=== PATIENT | male | born 1940 | race Caucasian/White ===

== ENCOUNTER → 2018-02-15 | Outpatient (CLI) | payer MEDICARE, OTHER ==
[~2018-02-15] MED LIST: ACHD5005 PO; ALBU2.5V4 IN; AMIO200T50 PO; ASP81CT; ASPI-74 PO; AZIT-21 PO; CEFD300C PO; CEPH500C PO; CHOL100011 PO; CHOL5000 PO; CLOP75TA PO; GREEN TEA PO; MECL-124 PO; METO50TA7 PO; NSTU5 PO; OMEP-10 PO; PRD10T PO; PRM25T PO; SIMV20TA3 PO; SULF1TAB35 PO
--- NOTE | 2018-02-15 11:06 | Diagnostic Imaging Report ---
PROCEDURE: CT head without contrast. TECHNIQUE: Multiple contiguous axial images were obtained through the brain without the use of intravenous contrast. INDICATION: Trauma. Scalp laceration. Anticoagulation therapy. COMPARISON: None. FINDINGS: There appears scalp contusion/laceration overlying the right parietal convexity near the midline. Moderate to advanced generalized cerebral and cerebellar parenchymal volume loss. No CT evidence of acute infarction. Intracranial vascular calcifications. No intracranial hemorrhage, mass effect, hydrocephalus or extra-axial fluid collections. Osseous structures are intact. The paranasal sinuses and mastoids are clear. IMPRESSION: 1. No acute intracranial CT findings. 2. Scalp laceration/contusion overlying the right parietal convexity near the midline. No fractures. Dictated by: Dictated on workstation # [id number]
== END ==
LOC: RAD 10:18
PROVIDERS: ATTEND Nurse Practitioner Family
DX: S01.01XA Laceration without foreign body of scalp, initial encounter (principal); W19.XXXA Unspecified fall, initial encounter; Z79.01 Long term (current) use of anticoagulants
CPT/HCPCS: 70450

== ENCOUNTER → 2019-08-15 | Outpatient (CLI) | payer MEDICARE, OTHER ==
[2019-08-15 10:13] LABS: CREATININE SERUM 1.05 MG/DL (0.60-1.30); GFR ESTIMATED > 60
== END ==
LOC: LAB 09:19
PROVIDERS: ATTEND Nurse Practitioner
DX: I71.4 Abdominal aortic aneurysm, without rupture (principal)
CPT/HCPCS: 36415; 82565

== ENCOUNTER → 2021-04-08 | Outpatient (CLI) | payer BC, MEDICARE ==
[~2021-04-08] MED LIST changes: +CATHETER FLUSH 10 ML SYR IV PRN; +HOLD METFORMIN - RECEIVED CONTRAST 20 ML VIAL IV SCH; +IOHEXOL 350 MG/ML 100 ML (OMNIPAQUE 350) VIAL IV ONE; +NS 100 ML (IVPB) BAG IV ONE
[2021-04-08 08:21] LABS: BUN/CREATININE RATIO 10; CREATININE SERUM 0.87 MG/DL (0.60-1.30); GFR ESTIMATED > 60
--- NOTE | 2021-04-08 09:19 | Diagnostic Imaging Report ---
PROCEDURE: CT angiography of the abdomen with and without contrast. TECHNIQUE: Multiple contiguous axial images were obtained through the abdomen and pelvis after administration of intravenous contrast. 3D MIP reconstructions were made. Auto Exposure Controls were utilized during the CT exam to meet ALARA standards for radiation dose reduction. INDICATION: Abdominal aortic aneurysm. There are no prior CTA abdomen exams available for comparison. The MRI lumbar spine exam performed on 10/29/2014 noted that the descending thoracic aorta was slightly dilated measuring 2.8 x 2.8 cm (normal 3.0 x 3.0 cm or less). In the interval since the previous MRI lumbar spine exam, the infrarenal aneurysm has increased in size and now measures 3.3 x 4.1 cm in maximum transverse and AP diameters. There is also thrombus occupying 50% of the lumen in the region of the aneurysm. There is fairly extensive atherosclerotic plaque throughout the major branches of the aorta and there do appear to be moderate stenoses involving the origins of the celiac axis and superior mesenteric artery and perhaps left renal artery. There is no acute abnormality of the abdomen identified. The liver is of lower density than usually seen and this does suggest fatty metamorphosis. The spleen does contain a number of calcifications. 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 The pancreas, adrenals, the kidneys and the inferior vena cava are unremarkable for an acute abnormality. The gallbladder is not fully distended and difficult to assess. There is no obvious gallbladder abnormality evident. The stomach is also difficult to evaluate and partially filled with fluid and gas. There is no abdominal mass or free fluid collection evident. There do appear to be a few diverticula in the sigmoid colon but there is no sign of acute diverticulitis. The images through the lung bases show there is cardiomegaly and coronary artery disease as well as slight pleural thickening in the right lung base. There is no evidence for pneumonia or for pleural effusion. The bone windows are unremarkable for fracture or for destructive lesion. IMPRESSION: 1. 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 The aorta measures 3.3 x 4.1 cm. Half of the aneurysm lumen is occupied by thrombus. 2. There is atherosclerotic disease throughout the aorta and do appear to moderate stenoses involving the origins of the superior mesenteric artery, celiac axis and perhaps the left renal artery. 3. There is no acute abnormality of the abdomen noted. 4. There is cardiomegaly and coronary artery disease. Dictated by: Dictated on workstation # [id number]
== END ==
LOC: RAD 07:49
PROVIDERS: ATTEND Internal Medicine Cardiovascular Disease
DX: I71.4 Abdominal aortic aneurysm, without rupture (principal); I25.10 Atherosclerotic heart disease of native coronary artery without angina pectoris; I51.7 Cardiomegaly
CPT/HCPCS: 36415; 74175; 82565; 84520

== ENCOUNTER → 2021-06-25 | Outpatient (CLI) | payer MEDICARE, BC ==
[~2021-06-25] MED LIST changes: -CATHETER FLUSH 10 ML SYR IV PRN; -HOLD METFORMIN - RECEIVED CONTRAST 20 ML VIAL IV SCH; -IOHEXOL 350 MG/ML 100 ML (OMNIPAQUE 350) VIAL IV ONE; -NS 100 ML (IVPB) BAG IV ONE
[2021-06-25 08:46] LABS: ALBUMIN 3.7 GM/DL (3.2-4.5)
[2021-06-25 08:47] LABS: POTASSIUM 4.7 MMOL/L (3.6-5.0)
[2021-06-25 08:48] LABS: CALCIUM 9.9 MG/DL (8.5-10.1)
[2021-06-25 08:52] LABS: CREATININE SERUM 0.94 MG/DL (0.60-1.30); PHOSPHORUS 3.3 MG/DL (2.3-4.7)
[2021-06-25 08:55] LABS: MAGNESIUM 1.7 MG/DL (1.6-2.4)
== END ==
LOC: LAB 08:16
DX: I48.0 Paroxysmal atrial fibrillation (principal)
CPT/HCPCS: 36415; 80069; 80162; 83735

== ENCOUNTER 2021-11-17 05:41 | Outpatient (CLI) | payer BC, MEDICARE ==
[~2021-11-17] VITALS: Ht 180 cm; Wt 89.0 kg
[2021-11-17] MEDS ORDERED: POTA-169 PO (13:14)
[2021-11-17] MEDS ORDERED: FURO20TA4 PO (13:14)
[2021-11-17] MEDS ORDERED: CARV6.252 PO (13:14)
[2021-11-17] MEDS ORDERED: LORA10TA7 PO (13:14)
[2021-11-17] MEDS ORDERED: DIGO125T3 PO (13:14)
[2021-11-17] MEDS ORDERED: NITR0.4T39 SL (13:14)
[2021-11-17] MEDS ORDERED: ATOR40TA70 PO (13:14)
[2021-11-17] MEDS ORDERED: CLOP75TA28 PO (13:14)
[2021-11-17] MEDS ORDERED: CHOL400C9 PO (13:14)
[2021-11-17] MEDS ORDERED: MULT-1136 PO (13:14)
[2021-11-17] MEDS ORDERED: APIX5TAB PO (13:14)
[2021-11-17] MEDS ORDERED: LISI10TA25 PO (13:14)
== END 2021-11-17 13:22 | disposition home or self-care (01) ==
LOC: PREOP 05:41
PROVIDERS: ATTEND Specialist
DX: Z01.818 Encounter for other preprocedural examination (principal)

== ENCOUNTER 2021-11-20 06:21 | Day surgery (SDC) | payer BC, MEDICARE ==
[~2021-11-20] VITALS: Ht 180 cm; Wt 89.0 kg
[~2021-11-20 06:21] MED LIST changes: +APIX5TAB PO; +ATOR40TA70 PO; +CARV6.252 PO; +CHOL400C9 PO; +CLOP75TA28 PO; +DIGO125T3 PO; +FURO20TA4 PO; +LISI10TA25 PO; +LORA10TA7 PO; +MULT-1136 PO; +NITR0.4T39 SL; +POTA-169 PO
[2021-11-20] MEDS ORDERED: TIMOLOL MALEATE 0.5% 5 ML (TIMOPTIC) BTL OU PRN (06:45)
[2021-11-20] MEDS ORDERED: LIDOCAINE PF 1% 2 ML VIAL IR PRN (06:45)
[2021-11-20] MEDS ORDERED: MOXIFLOXACIN OPHTH SOLN 5 MG/ML 0.3 ML SYRINGE OP ONE (06:45)
[2021-11-20] MEDS ORDERED: POVIDONE (BETADINE) OPHTH SOLN 5% 30 ML OP ONE (06:45)
[2021-11-20] MEDS: TETRACAINE 0.5% OPHTH SOLN 4 ML BTL (SINGLE DOSE ONLY) OU PRN ×4 (06:46→07:03)
[2021-11-20 06:47] VITALS: BP 146/107
[2021-11-20] MEDS: PHENYLEPHRINE 10% OPHTH (NEO-SYN) 5 ML BTL OU SCH ×3 (06:53→07:03)
[2021-11-20] MEDS: TROPICAMIDE 1% OPH SOLN (MYDRIACYL) 15 ML BTL OP SCH ×3 (06:53→07:03)
[2021-11-20] MEDS ORDERED: MIDAZOLAM 2 MG/2 ML (VERSED) VIAL ONE (07:28)
--- NOTE | 2021-11-20 07:39 | Ophthalmologist Pre-Op Note ---
Pre-Operative Progress Note H&P Reviewed The H&P was reviewed, patient examined and no changes noted. Date H&P Reviewed: Nov 20, 2021 Time H&P Reviewed: 07:38 Pre-Op Dx Cataract, Right Eye OLIVIA BARRERA MD Nov 20, 2021 07:38
--- NOTE | 2021-11-20 07:59 | Ophthalmology Operative Report ---
Cataract removal/placement IOL PREOPERATIVE DIAGNOSIS: Cataract Right Eye POSTOPERATIVE DIAGNOSIS: Cataract Right Eye PROCEDURE: Cataract removal and placement of posterior chamber implant, right eye SURGEON: Lm Barrera ANESTHESIA: Topical with sedation COMPLICATIONS: None ESTIMATED BLOOD LOSS: Minimal DESCRIPTION OF PROCEDURE: After proper informed consent was obtained, the patient, a 81 male, was taken to the Operating Room and the right eye was anesthetized with tetracaine. The right eye was then prepped and draped in the usual manner. A wire lid speculum was placed. A paracentesis was made at the left hand position. Preservative free lidocaine was injected into the anterior chamber followed by viscoelastic. A clear corneal incision was made in the temporal position. A capsulorrhexis was preformed and the central nuclear and cortical material were removed. The posterior capsule was polished and Keyon AU00T0 22.0 IOL was placed into the capsular bag. The residual viscoelastic was aspirated and balanced saline solution was injected into the anterior chamber. Moxifloxacin was injected into the anterior chamber. The wound was checked and found to be water tight. The patient tolerated the procedure well without complications. LM BARRERA MD Nov 20, 2021 07:59
[2021-11-20 08:06] VITALS: BP 110/79
--- NOTE | 2021-11-20 10:47 | Anesthesia-General Post-Op ---
MAC Patient Condition Mental Status/LOC: Same as Preop Cardiovascular: Satisfactory Nausea/Vomiting: Absent Respiratory: Satisfactory Pain: Controlled Complications: Absent Post Op Complications Complications None Follow Up Care/Instructions Patient Instructions None needed. Anesthesiology Discharge Order Discharge Order Patient is doing well, no complaints, stable vital signs, no apparent adverse anesthesia problems. No complications reported per nursing. JES CHRISTENSEN CRNA Nov 20, 2021 10:47
[2021-11-20] MEDS ORDERED: acetaZOLAMIDE ER 500 MG CAP (DIAMOX SEQUELS) PO ONE (11:30)
== END 2021-11-20 08:08 ==
LOC: SDC 06:21
PROVIDERS: ATTEND Specialist
DX: H25.11 Age-related nuclear cataract, right eye (principal); I10 Essential (primary) hypertension; I25.10 Atherosclerotic heart disease of native coronary artery without angina pectoris; I48.91 Unspecified atrial fibrillation; K21.9 Gastro-esophageal reflux disease without esophagitis; Z87.891 Personal history of nicotine dependence; Z79.899 Other long term (current) drug therapy
CPT/HCPCS: 66984; V2632

== ENCOUNTER 2021-12-04 09:17 | Day surgery (SDC) | payer MEDICARE ==
[~2021-12-04] VITALS: Ht 180 cm; Wt 89.0 kg
[2021-12-04] MEDS: TETRACAINE 0.5% OPHTH SOLN 4 ML BTL (SINGLE DOSE ONLY) OU PRN ×4 (09:28→09:46)
[2021-12-04] MEDS ORDERED: LIDOCAINE PF 1% 2 ML VIAL IR PRN (09:30)
[2021-12-04] MEDS ORDERED: MOXIFLOXACIN OPHTH SOLN 5 MG/ML 0.3 ML SYRINGE OP ONE (09:30)
[2021-12-04] MEDS ORDERED: POVIDONE (BETADINE) OPHTH SOLN 5% 30 ML OP ONE (09:30)
[2021-12-04] MEDS ORDERED: TIMOLOL MALEATE 0.5% 5 ML (TIMOPTIC) BTL OU PRN (09:30)
[2021-12-04] MEDS: PHENYLEPHRINE 10% OPHTH (NEO-SYN) 5 ML BTL OU SCH ×3 (09:36→09:46)
[2021-12-04] MEDS: TROPICAMIDE 1% OPH SOLN (MYDRIACYL) 15 ML BTL OP SCH ×3 (09:36→09:46)
[2021-12-04 09:37] VITALS: BP 123/87
--- NOTE | 2021-12-04 09:54 | Ophthalmologist Pre-Op Note ---
Pre-Operative Progress Note H&P Reviewed The H&P was reviewed, patient examined and no changes noted. Date H&P Reviewed: Dec 04, 2021 Time H&P Reviewed: 09:53 Pre-Op Dx Cataract, Left Eye OLIVIA BARRERA MD Dec 04, 2021 09:54
[2021-12-04] MEDS ORDERED: MIDAZOLAM 2 MG/2 ML (VERSED) VIAL ONE (10:02)
--- NOTE | 2021-12-04 10:41 | Ophthalmology Operative Report ---
Cataract removal/placement IOL PREOPERATIVE DIAGNOSIS: Cataract Left Eye POSTOPERATIVE DIAGNOSIS: Cataract Left Eye PROCEDURE: Cataract removal and placement of posterior chamber implant, left eye SURGEON: Lm Barrera ANESTHESIA: Topical with sedation COMPLICATIONS: None ESTIMATED BLOOD LOSS: Minimal DESCRIPTION OF PROCEDURE: After proper informed consent was obtained, the patient, a 81 male, was taken to the Operating Room and the left eye was anesthetized with tetracaine. The left eye was then prepped and draped in the usual manner. A wire lid speculum was placed. A paracentesis was made at the left hand position. Preservative free lidocaine was injected into the anterior chamber followed by viscoelastic. A clear corneal incision was made in the temporal position. A capsulorrhexis was preformed and the central nuclear and cortical material were removed. The posterior capsule was polished and an Keyon 21.0 [id number] was placed into the capsular bag. The residual viscoelastic was aspirated and balanced saline solution was injected into the anterior chamber. Moxifloxacin was injected into the anterior chamber. The wound was checked and found to be water tight. The patient tolerated the procedure well without complications. LM BARRERA MD Dec 04, 2021 10:41
[2021-12-04 10:44] VITALS: BP 127/78
[2021-12-04] MEDS ORDERED: hydrALAZINE (APESOLINE) 20 MG/ML VIAL ONE (10:47)
[2021-12-04] MEDS ORDERED: WATER (STERILE) FOR INJECTION 0 ML ONE (10:48)
[2021-12-04] MEDS ORDERED: acetaZOLAMIDE ER 500 MG CAP (DIAMOX SEQUELS) PO ONE (11:00)
--- NOTE | 2021-12-04 12:28 | Anesthesia-General Post-Op ---
MAC Patient Condition Mental Status/LOC: Same as Preop Cardiovascular: Satisfactory Nausea/Vomiting: Absent Respiratory: Satisfactory Pain: Controlled Complications: Absent Post Op Complications Complications None Follow Up Care/Instructions Patient Instructions None needed. Anesthesiology Discharge Order Discharge Order Patient is doing well, no complaints, stable vital signs, no apparent adverse anesthesia problems. No complications reported per nursing. MARY LOU VALENTIN CRNA Dec 04, 2021 12:28
== END 2021-12-04 10:47 ==
LOC: SDC 09:17
PROVIDERS: ATTEND Specialist
DX: H25.12 Age-related nuclear cataract, left eye (principal); I10 Essential (primary) hypertension; Z87.891 Personal history of nicotine dependence
CPT/HCPCS: 66984; V2632

== ENCOUNTER 2023-07-20 20:36 | Outpatient (CLI) | payer MEDICARE | END 2023-07-21 06:30 | LOC: SLEEP 20:36 | PROVIDERS: ATTEND Family Medicine | DX: G47.33 Obstructive sleep apnea (adult) (pediatric) (principal); I25.9 Chronic ischemic heart disease, unspecified; I10 Essential (primary) hypertension | CPT/HCPCS: 95811 ==